=== PATIENT | female | born 1960 | race Caucasian/White ===

== ENCOUNTER → 2018-02-24 | Outpatient (CLI) | payer OTHER ==
[~2018-02-24] MED LIST: BENTYL 20 MG TA20 M1 PO; CALCIUM 600 +1 EAC1 PO; COLESTID1 GM PO; CYMBALTA60 MG PO; IRON PO; LOPRESSOR50 PO; NEURONTIN 300300 M1 PO; PAMELOR25 MG PO; SIMVASTATIN40 MG PO
== END ==
LOC: M.MRI 17:03
DX: M47.26 Other spondylosis with radiculopathy, lumbar region (principal); M47.894 Other spondylosis, thoracic region; M25.552 Pain in left hip

== ENCOUNTER → 2018-04-17 | Outpatient (CLI) | payer OTHER ==
--- NOTE | 2018-04-24 08:42 | PAINCON ---
[address] [address] PAIN MANAGEMENT CONSULTATION Name: JOAQUIN MURCIA Darrius Room: [facility]#: [id number] Admission: 04/17/18 Attend Phys: Candelaria Chapman MD Discharge: Date of : 58 Report #: [id number] THIS REPORT FOR: //name// CC: Candelaria Small DATE OF SERVICE: 04/17/2018 PRIMARY CARE PHYSICIAN: Darron Small MD FOLLOWUP COMPLAINT: Low back pain down the left buttock and to left side. FOLLOWUP HISTORY: The patient is a 58-year-old female who has been seen in the Pain Clinic because of chronic pain in her left hip with pain that radiates down into her leg. She continues to experience some low back, buttocks and left-sided pain. This has been problematic since December of this year. She has received about 75% relief after the injection. Continues to have some discomfort and has returned to the pain clinic for consideration of another epidural steroid injection today. She had no complications from the procedure. She has also tried some CBD oil. She finds that this medication seems to be helpful. She rates her pain today as a 4/10. She has had no complications from the previous treatment. Still uses nortriptyline, gabapentin, Cymbalta, baclofen and Flexeril to help control her discomfort. Notes pain as exacerbated with activities, changes in temperature, walking, sitting, standing, going from a sitting to a standing position, lifting and bending. Almost any movement can exacerbate the discomfort. Continues to find favor with heat, cold and rest. ALLERGIES: PENICILLIN AND LEVBID, BOTH CAUSE HIVES. CURRENT MEDICATIONS: Vitamin D 600 mg, Colestid 1 g tablet b.i.d., Bentyl 20 mg b.i.d., Cymbalta 60 mg daily, gabapentin 300 mg daily, metoprolol 50 mg daily, Pamelor 25 mg at bedtime, Zocor 40 mg in the evening, iron 65 mg daily. PAIN CLINIC ASSESSMENT: 1. History of osteoarthritis and rheumatoid arthritis. The patient is not being treated for rheumatoid arthritis or osteoarthritis. 2. Height 5 feet 3 inches, weight 204 pounds, BMI is 36. VITAL SIGNS: Blood pressure 145/85, heart rate 85, respiratory rate 16, room air saturation 96%, temperature 98.2. Pain intensity 4/10 down from 10/10 in February. 3. Fall risk: The patient has not fallen in the last 3 months. 4. Blood thinner. The patient is not on a blood thinning medication. 5. History of hypertension. The patient has not been treated for hypertension. 6. Opioid therapy greater than 6 weeks. The patient is not on opioid regimen. 7. Risk assessment tool, low for use of opioids. 8. Functional assessment 64/70 showing severe impact on [place] [address] PAIN MANAGEMENT CONSULTATION Name: JOAQUIN MURCIA Room: [facility]#: [id number] Admission: 04/17/18 Attend Phys: Candelaria Chapman MD Discharge: Date of : 58 Report #: [id number] 9. Recreational drug use. The patient denies use of recreational drugs. 10. Tobacco: The patient denies use of tobacco. 11. Alcohol: The patient denies use of alcoholic beverages. PHYSICAL EXAMINATION: GENERAL: The patient is a well-developed white female, appears her stated age. She is alert and oriented. She is appropriate. Her speech is fluent. HEENT: Normocephalic, atraumatic. Extraocular eye muscles intact. Sclerae nonicteric. Hearing within normal limits. Mucous membranes moist. NECK: Without adenopathy or JVD. Good range of motion. HEART: Regular rate. S1, S2. LUNGS: Clear to auscultation without crackles or rales. MUSCULOSKELETAL: Without scoliosis, kyphosis or lordosis. ABDOMEN: Nontender. EXTREMITIES: Upper extremities strength is judged to be 5/5 for the major muscle groups. Deep tendon reflexes +2, lower muscle strength is judged to be 5/5. The patient does still complain of some lower back pain, particularly radiating down into the left side and into the buttocks. IMPRESSION: 1. Lumbar radiculopathy with classical findings of the sciatica with pain radiating down into the L5-S1 area, improved greater than 75% after last injection. 2. Irritable bowel syndrome. 3. History of back pain. 4. History of renal stones. 5. Hypertension. 6. Hypercholesterolemia. 7. Anxiety/generalized. 8. Breast fibroadenomas. RECOMMENDATIONS: We discussed treatment options with the patient. Risks and benefits of a lumbar epidural steroid injection were again reviewed. Possible complications were discussed. They could include but are not limited to infection, increased muscle soreness, headache, bleeding, worsening of pain, paralysis, no improvement in pain and the patient elects to proceed. PROCEDURE NOTE: The patient was placed in the prone position. She was assisted in getting on the table. Fluoroscopy was used to identify the L5-S1 area. This area had been sterilely prepped with Betadine and infiltrated with 0.25% bupivacaine. Total of 80 mg Depo-Medrol, 40 mg triamcinolone and 2 mL of 0.25% bupivacaine was injected. The patient tolerated the procedure well. There were no complications. She remained in the Pain Clinic for an appropriate amount of time. She will follow [place] [address] PAIN MANAGEMENT CONSULTATION Name: JOAQUIN MURCIA Room: [facility]#: [id number] Admission: 04/17/18 Attend Phys: Candelaria Chapman MD Discharge: Date of : 58 Report #: [id number] We would like to thank you for letting us participate in her care. A total of 10 seconds fluoroscopy time was used. <ELECTRONICALLY SIGNED> By: Candelaria Chapman MD 04/24/18 0842 [id number]. Laci Chapman MD /[facility]
== END | disposition home or self-care (01) ==
LOC: M.PC 03:26
DX: M54.16 Radiculopathy, lumbar region (principal); G89.29 Other chronic pain; I10 Essential (primary) hypertension; E78.00 Pure hypercholesterolemia, unspecified; K58.9 Irritable bowel syndrome, unspecified; F41.9 Anxiety disorder, unspecified; Z87.442 Personal history of urinary calculi; Z98.890 Other specified postprocedural states; Z88.0 Allergy status to penicillin; Z88.8 Allergy status to other drugs, medicaments and biological substances; Z79.899 Other long term (current) drug therapy

== ENCOUNTER → 2019-02-02 | Outpatient (CLI) | payer OTHER | LOC: M.RAD 12:57 | DX: Z12.31 Encounter for screening mammogram for malignant neoplasm of breast (principal) ==

== ENCOUNTER → 2019-02-06 | Outpatient (CLI) | payer OTHER ==
--- NOTE | 2019-02-07 14:13 | TST ---
[place] [address] TREADMILL STRESS TEST Name: DIVINAJOAQUIN PRAVEEN Room: [facility]#: [id number] Admission: 02/06/19 Attend Phys: Darron Small, Discharge: Date of : 58 Date of Service: 02/06/19 1612 Report #: [id number] THIS REPORT FOR: //name// CC: Darron Small MD CARDIAC STRESS TEST INDICATION: Cardiac risk factors. CARDIAC RISK FACTORS: Include age greater than 55, hyperlipidemia, hypertension and elevated C-reactive protein. CARDIAC MEDICATIONS: Metoprolol and simvastatin. The patient exercised per standard Mati protocol for a total of 4 minutes and 2 seconds. The resting blood pressure was 129/91 mmHg with a resting heart rate of 113 beats per minute. At peak exercise, the blood pressure was 186/98 mmHg, with a peak heart rate of 156 beats per minute. In recovery, the blood pressure was 131/89 mmHg, with a recovery heart rate of 109 beats per minute. The patient achieved 98% of the maximum predicted heart rate with an energy expanded to 5.87 METS. The patient exhibited reduced/limited exercise capacity. Exercise was stopped due to dyspnea and fatigue. She did not have chest pain. The baseline EKG shows sinus rhythm with subtle 1-mm ST-segment depression in the inferolateral leads. EKGs obtained during and post-exercise show sinus rhythm and sinus tachycardia, with no significant ST-segment changes when compared to baseline. There were no stress-induced arrhythmias. CONCLUSION: 1. Clinical response: Nonischemic. 2. EKG response: No evidence of ischemia at the level of stress achieved. CONCLUSION: This standard Mati protocol exercise stress test shows no evidence to suggest underlying stress-induced ischemia. This is not a high-risk study. <ELECTRONICALLY SIGNED> By: Juan Jose Bermudez MD, FACC 02/07/19 1413 1612 1227 Juan Jose Bermudez MD, FACC /nt
== END ==
LOC: M.CRD 14:45
DX: R79.82 Elevated C-reactive protein (CRP) (principal); I10 Essential (primary) hypertension; M19.042 Primary osteoarthritis, left hand; M19.041 Primary osteoarthritis, right hand; E78.5 Hyperlipidemia, unspecified; Z79.899 Other long term (current) drug therapy; Z90.710 Acquired absence of both cervix and uterus; Z90.49 Acquired absence of other specified parts of digestive tract

== ENCOUNTER 2019-12-05 11:36 | Emergency (ER) | payer OTHER ==
[~2019-12-05] VITALS: Ht 160 cm; Wt 91.2 kg
[2019-12-05] MEDS ORDERED: METHOTREXATE 22.5 M1 (11:49)
[2019-12-05] MEDS ORDERED: CALCIUM/VIT D (11:49)
[2019-12-05] MEDS ORDERED: FOLIC ACID1 MG PO (11:49)
[2019-12-05] MEDS ORDERED: IRON18 M1 PO (11:50)
[2019-12-05] MEDS ORDERED: BIOTIN5 MG PO (11:50)
[2019-12-05] MEDS ORDERED: PREDNISONE 20 M20 MG PO (12:02)
[2019-12-05] MEDS ORDERED: NORCO 5-325 TA1 EAC1 PO (12:02)
[2019-12-05 12:41] VITALS: BP 139/88
== END 2019-12-05 12:41 | disposition home or self-care (01) ==
LOC: M.ERS 11:36
DX: M54.16 Radiculopathy, lumbar region (principal); K21.9 Gastro-esophageal reflux disease without esophagitis; M79.7 Fibromyalgia; Z90.49 Acquired absence of other specified parts of digestive tract; Z90.710 Acquired absence of both cervix and uterus; Z88.0 Allergy status to penicillin; Z88.8 Allergy status to other drugs, medicaments and biological substances

== ENCOUNTER → 2019-12-15 | Outpatient (CLI) | payer OTHER ==
[~2019-12-15] MED LIST changes: +BIOTIN5 MG PO; +CALCIUM/VIT D; +FOLIC ACID1 MG PO; +IRON18 M1 PO; +METHOTREXATE 22.5 M1; +NORCO 5-325 TA1 EAC1 PO; +PREDNISONE 20 M20 MG PO
--- NOTE | 2020-01-01 09:31 | PAINCON ---
[address] [place] [address] [address] PAIN MANAGEMENT CONSULTATION Name: JOAQUIN MURCIA Room: [facility].#: [id number] Admission: 12/15/19 Attend Phys: Candelaria Chapman MD Discharge: Date of : 58 Report #: [id number] THIS REPORT FOR: //name// cc: Darron Small MD, Tuongvan T. MD ~ THIS REPORT FOR: //name// CC: Candelaria Small MD DATE OF SERVICE: 12/15/2019 CHIEF COMPLAINT: Low back pain down into my left leg. HISTORY: The patient is a 59-year-old female who has been seen in the pain clinic because of lumbar radiculopathy. The patient states that she is having more pain. She rates it as a 5/10. She woke up a few days ago, she was experiencing an increasing amount of discomfort in her low back. Because of the pain she went to the Emergency Room. She describes the pain as sharp and shooting. Denies any recent trauma. Notes that the pain is worse when she is walking, sitting, standing, climbing stairs, bending, or lifting. She has noted improvement with use of her medications. Hot and cold compresses are helpful as well. ALLERGIES: PENICILLIN AND LEVBID, BOTH CAUSE HIVES. CURRENT MEDICATIONS: Biotin 5 mg, calcium/vitamin, Colestid 1 gram b.i.d., Bentyl 20 mg b.i.d., Cymbalta 60 mg, folic acid 1 mg, hydrocodone/acetaminophen 5/325, methotrexate 2.5 mg weekly, metoprolol 50 mg, Pamelor 25 mg, prednisone 20 mg, and simvastatin 40 mg. PAIN CLINIC ASSESSMENT/PQRS: 1. The patient is not being treated for osteoarthritis. She is being treated for psoriatic arthritis. 2. Height 5 feet 3 inches, weight 200 pounds, BMI is 35.9. 3. Vital signs: Blood pressure 144/85, heart rate 100, respiratory rate 16, room air saturation is 94%, temperature 97.3. 4. Pain intensity 5/10. 5. Fall history: The patient has not fallen in the last month. 6. Blood thinner. The patient is not on a blood thinning medication. 7. Hypertension. The patient is not being treated for hypertension. 8. Opioids greater than 6 weeks. The patient received medication from one source. 9. Risk assessment tool, low for opioid use. 10. Functional assessment tool, [place] [address] PAIN MANAGEMENT CONSULTATION Name: JOAQUIN MURCIA Room: [facility]#: [id number] Admission: 12/15/19 Attend Phys: Candelaria Chapman MD Discharge: Date of : 58 Report #: [id number] 11. Recreational drug use: The patient denies. 12. Tobacco: The patient denies. PHYSICAL EXAMINATION: GENERAL: The patient is a well-developed, well-nourished white female. Appears her stated age. She is alert and oriented x 3. Her affect is appropriate. Speech is fluent. HEENT: Normocephalic, atraumatic. Extraocular eye muscles intact. Sclerae nonicteric. Hearing is within normal limits. Mucous membranes are moist. NECK: Without adenopathy or JVD.- good range of motion. HEART: Regular rate. S1, S2. LUNGS: Clear to auscultation without crackles or rales. MUSCULOSKELETAL: Without scoliosis, kyphosis, or lordosis. ABDOMEN: Nontender. EXTREMITIES: Upper extremity muscle strength judged to be 5/5 for the major muscle groups in the upper extremity. The patient has pain and discomfort in the lower portion of her back with pain radiating down into the left buttocks area. IMPRESSION: 1. Lumbar radiculopathy with classical findings of sciatica with pain radiating down the L5-S1 dermatomal distribution, improved with epidural steroid injection in the past. 2. Irritable bowel syndrome. 3. History of back pain. 4. History of renal stones. 5. Hypertension. 6. Hypercholesterolemia. 7. Anxiety/generalized. 8. Breast fibroadenoma. RECOMMENDATIONS: We discussed treatment options with the patient. Risks and benefits of an epidural steroid injection were again discussed. They could include but are not limited to infection, worsening of pain, no improvement in pain, nerve damage, and the patient elects to proceed. PROCEDURE NOTE: The patient was taken to the procedure area. She was then assisted in getting on the examination table. Her back was sterilely prepped with a Betadine solution. A 0.25% bupivacaine was infiltrated. A total of 80 mg Depo-Medrol, 40 mg triamcinolone, and 2 mL of 0.25% bupivacaine was injected. The patient tolerated the procedure well. She remained in the Pain Clinic for an appropriate amount of time. A 22 seconds fluoroscopy [place] [address] PAIN MANAGEMENT CONSULTATION Name: JOAQUIN MURCIA Room: [facility]#: [id number] Admission: 12/15/19 Attend Phys: Candelaria Chapman MD Discharge: Date of : 58 Report #: [id number] We would like to thank you for letting us participate in her care. She will follow up in the future with possibility of another injection if needed. <ELECTRONICALLY SIGNED> By: Candelaria Chapman MD 01/01/20 0931 1413 1735N. Laci Chapman MD /[facility]
== END | disposition home or self-care (01) ==
LOC: M.PC 08:30
DX: M54.16 Radiculopathy, lumbar region (principal); G89.29 Other chronic pain; I10 Essential (primary) hypertension; E78.00 Pure hypercholesterolemia, unspecified; F41.9 Anxiety disorder, unspecified; Z98.890 Other specified postprocedural states; Z79.899 Other long term (current) drug therapy; Z79.891 Long term (current) use of opiate analgesic; Z87.442 Personal history of urinary calculi; Z88.0 Allergy status to penicillin; Z88.8 Allergy status to other drugs, medicaments and biological substances

== ENCOUNTER → 2020-01-12 | Outpatient (CLI) | payer OTHER ==
[~2020-01-12] MED LIST changes: +ROBAXIN 750 MG750 MG PO
--- NOTE | 2020-01-20 08:25 | PAINCON ---
[place] [address] PAIN MANAGEMENT CONSULTATION Name: JOAQUIN MURCIA Room: [facility].#: [id number] Admission: 01/12/20 Attend Phys: Candelaria Chapman MD Discharge: Date of : 58 Report #: [id number] THIS REPORT FOR: //name// cc: Darron Small MD, Tuongvan T. MD ~ THIS REPORT FOR: //name// CC: Candelaria Small DATE OF SERVICE: 01/12/2020 CHIEF COMPLAINT: Low back and left leg pain. HISTORY: The patient is a 60-year-old female who has been followed in the pain clinic. She suffers from lumbar radiculopathy. She underwent an epidural steroid injection. She noticed some improvement in her pain and discomfort. She is not having pain that is radiating down the entirety of her leg at this point. Does have some pain down into her left foot. She is experiencing some left leg weakness. She rates her pain as a 4/10. Activities such as walking, sitting, and standing, going from a sitting to a standing position, lifting and bending are all still somewhat problematic. She has returned today with the desire to undergo another epidural steroid injection. ALLERGIES: PENICILLIN, HYOSCYAMINE (LEVBID) BOTH CAUSE HIVES. CURRENT MEDICATIONS: Biotin 5 mg, calcium, vitamins, Colestid 1 gram b.i.d., Bentyl 20 mg b.i.d., Cymbalta 60 mg, folic acid 1 mg, hydrocodone 5/325, methotrexate 2.5 mg weekly, metoprolol 50 mg, Pamelor 25 mg, prednisone 20 mg, simvastatin 40 mg. PAIN CLINIC ASSESSMENT/PQRS: 1. The patient is not being treated for osteoarthritis. She is being treated for psoriatic arthritis. 2. Height 5 feet 3 inches, weight 204 pounds, BMI is 36.3. 3. VITAL SIGNS: Blood pressure 140/72, heart rate 94, respiratory rate 16, room air saturation is 96%, temperature 97.3. 4. Pain intensity 01/28. 5. Fall history: The patient has not fallen in the last 3 months. 6. Blood thinner. The patient is not on a blood thinning medication. 7. Hypertension. 8. Opioids greater than 6 weeks. 9. Risk assessment tool reviewed. 10. Functional assessment tool reviewed. 11. Recreational drug use: The patient denies. 12. Tobacco: [place] [address] PAIN MANAGEMENT CONSULTATION Name: JOAQUIN MURCIA Room: [facility]#: [id number] Admission: 01/12/20 Attend Phys: Candelaria Chapman MD Discharge: Date of : 58 Report #: [id number] 13. Alcohol. The patient denies frequent use of alcoholic beverages. PHYSICAL EXAMINATION: GENERAL: The patient is a well-developed, well-nourished white female. Appears her stated age. She is alert and oriented x 3. Her affect is appropriate. Speech is fluent. HEENT: Normocephalic, atraumatic. Extraocular eye muscles intact. Sclerae nonicteric. Mucous membranes are moist. Hearing within normal limits. NECK: Without adenopathy or JVD. Good range of motion. HEART: Regular rate. S1, S2. LUNGS: Clear to auscultation without rhonchi. ABDOMEN: Nontender. MUSCULOSKELETAL: Without significant scoliosis, kyphosis or lordosis. Upper extremity muscle strength 5/5 for the major muscle groups in the upper extremity. The patient has had pain and discomfort with pain radiating down to the lower portion of her back in the L5-S1 dermatomal distribution. IMPRESSION: 1. Lumbar radiculopathy with classical findings of sciatica in the L4-L5 and L5-S1 dermatomal distribution. 2. Irritable bowel syndrome. 3. History of back problems. 4. History of renal stones. 5. Hypertension. 6. Hypercholesterolemia. 7. Anxiety/generalized. 8. Breast fibroadenoma. RECOMMENDATIONS: At this juncture, we will proceed with renewal of the patient's medication. A script for her medication is methocarbamol 750 mg 1 p.o. b.i.d. has been written. The patient will also continue with gabapentin, which she finds helpful. The patient has been provided with hydrocodone 5/325 one p.o. every 4-6 hours, total of 120 tablets. The patient will follow up in the near future. Possibility of another epidural steroid injection in the future is an option. We would like to thank you for letting us to participate in her care. She is aware that opioid medications can become less effective over time because of development of tolerance. <ELECTRONICALLY SIGNED> By: Candelaria Chapman MD 01/20/20 0825 1458 1647N. Laci Chapman MD /[facility]
== END ==
LOC: M.PC 04:21
DX: M54.5 Low back pain (principal); K58.9 Irritable bowel syndrome, unspecified; I10 Essential (primary) hypertension; E78.5 Hyperlipidemia, unspecified; F41.9 Anxiety disorder, unspecified; F32.9 Major depressive disorder, single episode, unspecified; Z79.899 Other long term (current) drug therapy